=== PATIENT | female | born 1990 | race Caucasian/White ===

== ENCOUNTER 2017-06-20 14:07 | Emergency (ER) | payer MEDICAID, SELFPAY ==
[2017-06-20 14:27] VITALS: BP 116/82; PULSE 87; RESP 20; TEMP 36.8; O2SAT 99; BMI 39.2
--- NOTE | 2017-06-20 14:39 | HMH.EDUTC ---
[facility] [place] Clinical Impression: Strep throat Disposition: Home, Self-Care Condition on Discharge: Good Instructions: DI for Strep Throat Additional Instructions: * Start antibiotic DORCAS and be sure to take as ordered for the FULL length of time although you should start to feel better in 24-48 hours. * Do NOT take antibiotics unless prescribed to you at that time. As we discussed, that is how antibiotic resistance starts. Next time, be sure to seek treatment. * change toothbrush and toothpaste 24-48 hours after starting antibiotic * Monitor Temp. Tylenol every 4 hours as needed no more then 5 times a day or 4000mg in 24 hours and/or ibuprofen every 6 hours as needed no more then 3200mg in 24 hours (as long as your primary care doctor has told you that it is ok to take both) for fever/aches/pain. ER if fever no less than 101 despite tylenol and Ibuprofen * Encourage fluids, water, gatorade, powerade, pedialyte if infant/toddler/child * cold fluids, popsicles, ice cream feel good * you are contagious until you have taken the antibiotic for 24 hours. * Avoid kissing anyone, including parents. No eating or drinking after anyone. You are contagious. Prescriptions: Amoxicillin [Amoxicillin 875MG Tab] 875 mg PO Q12H #20 tab Referrals: Eliseo Galdamez MD [Primary Care Provider] - (Follow up IMMEDIATELY for new or worsening symptoms OR no noticeable improvement over the next 24-48 hours. 911 for difficulty breathing or swallowing ) Time of Disposition: 14:52 Medical Decision Making Vital Signs: 06/20/17 14:27 Temperature 98.2 F Temperature Source Oral Pulse Rate [Left Brachial] 87 Respiratory Rate 20 Blood Pressure [Left Arm] 116/82 Blood Pressure Mean [Left Arm] 93 Blood Pressure Source [Left Arm] Automatic Cuff Blood Pressure Position [Left Arm] Sitting 02 Sat by Pulse Oximetry 99 Oxygen Delivery Method Room Air - Lab Data Lab results reviewed: Yes: I reviewed the patient's lab results. Strep positive FLu A neg Flu B neg - Phil Inquiry Pt receiving controlled substance: No [facility] [place] - General Stated complaint: sore throat Time Seen by Provider: 06/20/17 14:30 Mode of Arrival: Family Vehicle Source of Information: Patient Limitations: No Limitations Description of Symptoms (Recalled from Triage Doc. by RN): c/o sore throat and congestion x 1 1/2 weeks HEENT Symptoms (Recalled from RN notes): Yes (sore throat) Resp Symptoms (Recalled from RN notes): Yes (congestion) Skin Symptoms (Recalled from RN notes): No MS Symptoms (Recalled from RN notes): No Functional Status (Recalled from RN notes): n/a - History of Present Illness Provider Complaint: c/o sore throat x approx 1-1.5 weeks. Initially thought viral but then didn't get better. Took left over amoxicillin for 2 days, symptoms improved but ran out. Symptoms returned soon after. On Sunday mom had two amoxicillin so took those, felt better Sunday but now worse again. Ibuprofen, mucinex, theraflu not helping. No fevers. - Related Data Previous Rx's Medication Instructions Recorded Amoxicillin [Amoxicillin 875MG Tab] 875 mg PO Q12H #20 tab 06/20/17 Allergies Allergy/AdvReac Type Severity Reaction Status Date / Time No Known Allergies Allergy Verified 06/20/17 14:32 - Worker's Comp Is this a Worker's Comp case?: No [facility] History I have reviewed the patient's past medical history: Yes Medical History: Denies:: Diabetes Mellitus Type 1, Diabetes Mellitus Type 2, Heart Murmur Other Surgeries: Yes: (blood loss, blood transfusions), Other Amputation: No Fractures: No - Social History Smoking Status: Current every day smoker Tobacco Type: cigarettes Alcohol Intake: never - Psychiatric History Expresses thoughts of harming self/others: None Suicide Plan Description: No Plan ROS Obtained: Yes Systems reviewed as appropriate & no additional complaints - Constitutional Constitutional: Reports as per HPI, Reports body a
--- NOTE | 2017-06-20 14:43 | ED_ITS ---
[facility] [place] Clinical Impression: Strep throat Disposition: Home, Self-Care Condition on Discharge: Good Instructions: DI for Strep Throat Additional Instructions: * Start antibiotic DORCAS and be sure to take as ordered for the FULL length of time although you should start to feel better in 24-48 hours. * Do NOT take antibiotics unless prescribed to you at that time. As we discussed , that is how antibiotic resistance starts. Next time, be sure to seek treatment. * change toothbrush and toothpaste 24-48 hours after starting antibiotic * Monitor Temp. Tylenol every 4 hours as needed no more then 5 times a day or 4000mg in 24 hours and/or ibuprofen every 6 hours as needed no more then 3200mg in 24 hours (as long as your primary care doctor has told you that it is ok to take both) for fever/aches/pain. ER if fever no less than 101 despite tylenol and Ibuprofen * Encourage fluids, water, gatorade, powerade, pedialyte if infant/toddler/ child * cold fluids, popsicles, ice cream feel good * you are contagious until you have taken the antibiotic for 24 hours. * Avoid kissing anyone, including parents. No eating or drinking after anyone. You are contagious. Prescriptions: Amoxicillin [Amoxicillin 875MG Tab] 875 mg PO Q12H #20 tab Referrals: Eliseo Galdamez MD [Primary Care Provider] - (Follow up IMMEDIATELY for new or worsening symptoms OR no noticeable improvement over the next 24-48 hours. 911 for difficulty breathing or swallowing ) Time of Disposition: 14:52 Medical Decision Making Vital Signs: 06/20/17 14:27 Temperature 98.2 F Temperature Source Oral Pulse Rate [Left Brachial] 87 Respiratory Rate 20 Blood Pressure [Left Arm] 116/82 Blood Pressure Mean [Left Arm] 93 Blood Pressure Source [Left Arm] Automatic Cuff Blood Pressure Position [Left Arm] Sitting 02 Sat by Pulse Oximetry 99 Oxygen Delivery Method Room Air - Lab Data Lab results reviewed: Yes: I reviewed the patient's lab results. Strep positive FLu A neg Flu B neg - Phil Inquiry Pt receiving controlled substance: No [facility] [place] HPI - General Stated complaint: sore throat Time Seen by Provider: 06/20/17 14:30 Mode of Arrival: Family Vehicle Source of Information: Patient Limitations: No Limitations Description of Symptoms (Recalled from Triage Doc. by RN): c/o sore throat and congestion x 1 1/2 weeks HEENT Symptoms (Recalled from RN notes): Yes (sore throat) Resp Symptoms (Recalled from RN notes): Yes (congestion) Skin Symptoms (Recalled from RN notes): No MS Symptoms (Recalled from RN notes): No Functional Status (Recalled from RN notes): n/a - History of Present Illness Provider Complaint: c/o sore throat x approx 1-1.5 weeks. Initially thought viral but then didn't get better. Took left over amoxicillin for 2 days, symptoms improved but ran out. Symptoms returned soon after. On Sunday mom had two amoxicillin so took those, felt better Sunday but now worse again. Ibuprofen, mucinex, theraflu not helping. No fevers. - Related Data Previous Rx's Medication Instructions Recorded Amoxicillin [Amoxicillin 875MG Tab] 875 mg PO Q12H #20 tab 06/20/17 Allergies Allergy/AdvReac Type Severity Reaction Status Date / Time No Known Allergies Allergy Verified 06/20/17 14:32 - Worker's Comp Is this a Worker's Comp case?: No [facility] History I have reviewed the patient's past medical history: Yes Medical H
[2017-06-20 14:55] VITALS: BP 118/80; PULSE 88; RESP 20; TEMP 36.7; O2SAT 98
[2017-06-20 15:01] LABS: UTC Influenza A Antigen Negative (Negative); UTC Influenza B Antigen Negative (Negative)
[2017-06-20 15:02] LABS: UTC Strep Screen (Rapid) Positive (Negative)
== END 2017-06-20 15:00 | disposition home or self-care (01) ==
PROVIDERS: Emergency Provider Nurse Practitioner Family; Family Provider Internal Medicine Adolescent Medicine; PCP Internal Medicine Adolescent Medicine
DX: J02.0 Streptococcal pharyngitis (principal); F17.210 Nicotine dependence, cigarettes, uncomplicated
CPT/HCPCS: 87804; 87880; 99203

== ENCOUNTER → 2017-10-05 11:16 | Outpatient (CLI) | payer MEDICAID, SELFPAY ==
--- NOTE | 2017-10-05 11:21 | US_ITS ---
US abdomen limited History:Right upper quadrant pain and nausea Ordering Physician:Eliseo Galdamez MD Patient Age: 27 years Comparison:None Findings: Pancreas:Unremarkable. No obvious mass or abnormal fluid collection. No ductal dilatation Liver:No focal liver lesions demonstrated. Homogeneous echogenicity. No intrahepatic biliary ductal dilatation evident Right Kidney:Unremarkable. Right kidney measures 10.7 x 5.1 x 6.5 cm and appears sonographically normal. . No hydronephrosis Gallbladder:No gallstones, gallbladder wall thickening, pericholecystic fluid, or biliary dilatation. Impression:Negative gallbladder/right upper quadrant ultrasound
[2017-10-05 12:46] LABS: Basophils # 0.1 K/mm3 (0-0.2); Basophils % 0.6 % (0.1-2.0); Eosinophils # 0.1 K/mm3 (0.0-0.4); Eosinophils % 1.5 % (0.1-12.0); Hematocrit 49.8 % (37.0-47.0); Hemoglobin 15.9 g/dL (12.2-16.2); Lymphocytes # 1.5 K/mm3 (0.7-4.5); Lymphocytes % 15.8 K/mm3 (10-50); Mean Corpuscular HGB Conc 31.9 g/dL (31.8-35.4); Mean Corpuscular Hemoglobin 27.9 pg (27.0-31.2); Mean Corpuscular Volume 87.5 fl (81-99); Mean Platelet Volume 8.3 fl (7.4-10.4); Monocytes # 0.4 K/mm3 (0.1-1.0); Monocytes % 4.4 % (1.7-9.3); Neutrophils # 7.4 K/mm3 (1.8-7.8); Neutrophils % 77.7 % (37.0-80.0); Platelet Count 193 K/mm3 (142-424); Red Blood Count 5.69 M/mm3 (4.20-5.40); Red Cell Distribution Width 12.4 % (11.5-17.5); White Blood Count 9.5 K/mm3 (4.8-10.8)
[2017-10-05 13:57] LABS: Alanine Aminotransferase 19 U/L (12-78); Albumin Level 4.1 gm/dL (3.4-5.0); Albumin/Globulin Ratio 1.2 (1.1-1.8); Alkaline Phosphatase 105 U/L (46-116); Amylase 29 U/L (25-125); Aspartate Amino Transferase 10 U/L (15-37); Bilirubin,Total 0.8 mg/dL (0.2-1.0); Blood Urea Nitrogen 11 mg/dL (7-18); Calcium 8.9 mg/dL (8.5-10.1); Carbon Dioxide 27 mmol/L (21.0-32.0); Chloride 104 mmol/L (98-107); Creatinine,Serum 0.76 mg/dL (0.55-1.02); Estimated Glomerular Filt Rate 93 ml/min (>60); GFR (African American) 112 ML/MIN (>60); Globulin 3.5 gm/dl (1.3-3.2); Glucose 89 mg/dL (74-106); HCG,Quantitative 0 mIU/mL; Lipase 46 u/L (73-393); Sodium 138 mmol/L (136-145); Total Protein,Serum 7.6 gm/dL (6.4-8.2)
== END ==
PROVIDERS: PCP Internal Medicine Adolescent Medicine; Visit Provider Internal Medicine Adolescent Medicine
DX: R10.11 Right upper quadrant pain (principal)
CPT/HCPCS: 36415; 76705; 80053; 82150; 83690; 84702; 85025

== ENCOUNTER → 2020-09-15 12:43 | Outpatient (CLI) | payer OTHER, SELFPAY ==
[2020-09-15 12:51] LABS: Adenovirus,PCR Not Detected (NotDetected); Bordetella Pertussis Not Detected (NotDetected); Chlamydophila Pneumoniae, PCR Not Detected (NotDetected); Coronavirus 229E Not Detected (NotDetected); Coronavirus NL63 Not Detected (NotDetected); Coronavirus OC43 Not Detected (NotDetected); Coronovirus HKU1,PCR Not Detected (NotDetected); Human Metapneumovirus Not Detected (NotDetected); Influenza A, PCR Not Detected (NotDetected); Influenza AH1, 2009 Not Detected (NotDetected); Influenza AH1, PCR Not Detected (NotDetected); Influenza AH3,PCR Not Detected (NotDetected); Influenza B, PCR Not Detected (NotDetected); Mycoplasma Pneumoniae, PCR Not Detected (NotDetected); Parainfluenza 1, PCR Not Detected (NotDetected); Parainfluenza 2, PCR Not Detected (NotDetected); Parainfluenza 3, PCR Not Detected (NotDetected); Parainfluenza 4, PCR Not Detected (NotDetected); Respiratory Syncytial Virus Not Detected (NotDetected)
--- NOTE | 2020-09-15 13:04 | XR_ITS ---
PROCEDURE: XR CHEST 2V CLINICAL HISTORY: ACUTE URI, WHEEZING COMPARISON: No exams were available for comparison FINDINGS: The cardiomediastinal silhouette and pulmonary vascularity are within normal limits. No lobar consolidation or collapse is evident. There is a rounded nodular opacity overlying the right lower lobe at 13 mm and may represent a nipple shadow. This is not identified on the lateral view. The remaining lungs are clear. No acute bony abnormalities. IMPRESSION: No acute finding. Probable nipple shadow right lower lung zone which could be confirmed with follow-up exam nipple markers. Dictated by: Bryan Schreiber MD 09/15/2020 14:03 Bryan Schreiber MD in [place] 09/15/2020 14:03
[2020-09-15 13:18] LABS: Basophils # 0.1 K/mm3 (0-0.2); Basophils % 0.7 % (0.1-2.0); Eosinophils # 0.2 K/mm3 (0.0-0.4); Eosinophils % 1.8 % (0.1-12.0); Hematocrit 47.5 % (37.0-47.0); Hemoglobin 16.1 g/dL (12.2-16.2); Lymphocytes % 16.5 % (10-50); Mean Corpuscular HGB Conc 33.9 g/dL (31.8-35.4); Mean Corpuscular Volume 85.6 fl (81-99); Mean Platelet Volume 8.1 fl (7.4-10.4); Monocytes # 0.6 K/mm3 (0.1-1.0); Monocytes % 4.7 % (1.7-9.3); Neutrophils # 9.4 K/mm3 (1.8-7.8); Neutrophils % 76.4 % (37.0-80.0); Platelet Count 251 K/mm3 (142-424); Red Blood Count 5.55 M/mm3 (4.20-5.40); Red Cell Distribution Width 12.8 % (11.5-17.5); White Blood Count 12.2 K/mm3 (4.8-10.8)
[2020-09-15 13:59] LABS: Alanine Aminotransferase 22 U/L (12-78); Albumin Level 4.7 g/dl (3.5-5.0); Albumin/Globulin Ratio 1.6 (1.1-1.8); Alkaline Phosphatase 100 U/L (38-126); Anion Gap 15.2 mEq/L (5-15); Aspartate Amino Transferase 22 U/L (14-36); Bilirubin,Total 0.5 mg/dl (0.2-1.3); Blood Urea Nitrogen 11 mg/dl (7-17); Calcium 9.3 mg/dl (8.4-10.2); Carbon Dioxide 18 mmol/L (22.0-30.0); Chloride 109 mmol/L (98-107); Estimated Glomerular Filt Rate 100 ml/min (>60); GFR (African American) 121 ML/MIN (>60); Globulin 2.9 g/dL (1.3-3.2); Glucose 101 mg/dl (74-100); Potassium 4.2 mmoL/L (3.5-5.1); Sodium 138 mmol/L (136-145); Total Protein,Serum 7.6 g/dl (6.3-8.2)
[2020-09-15 14:47] LABS: Rhinovirus/Enterovirus Detected (NotDetected)
== END ==
PROVIDERS: Visit Provider Internal Medicine Adolescent Medicine
DX: Z20.822 Contact with and (suspected) exposure to COVID-19 (principal); B34.1 Enterovirus infection, unspecified; R06.2 Wheezing; J06.9 Acute upper respiratory infection, unspecified
CPT/HCPCS: 36415; 71046; 80053; 85025; 87486; 87581; 87633; 87798

== ENCOUNTER → 2020-10-08 10:04 | Outpatient (CLI) | payer OTHER, SELFPAY | PROVIDERS: Visit Provider Nurse Practitioner Obstetrics & Gynecology | DX: Z34.90 Encounter for supervision of normal pregnancy, unspecified, unspecified trimester (principal) ==

== ENCOUNTER → 2020-10-13 13:23 | Outpatient (CLI) | payer OTHER, SELFPAY ==
--- NOTE | 2020-10-13 13:23 | US_ITS ---
PROCEDURE: US OB <= 14 WEEKS FETUS CLINICAL INDICATION: US OB Before 14 wks for DATES COMPARISON: No exams were available for comparison FINDINGS: An intrauterine gestational sac is present with a pole with a crown-rump length of 1.88cm correlating to gestational age of 8weeks 3days. heart tones are present with an FHR of 167bpm. Yolk sac is noted. Unremarkable adnexa IMPRESSION: Live IUP at 8 weeks 3 days. Estimated due date by Ultrasound is 05/22/2021 Dictated by: Bryan Schreiber MD 10/13/2020 16:43 Bryan Schreiber MD in [facility] 10/13/2020 16:43
== END ==
PROVIDERS: PCP Internal Medicine Adolescent Medicine; Visit Provider Nurse Practitioner Obstetrics & Gynecology
DX: O26.841 Uterine size-date discrepancy, first trimester (principal)
CPT/HCPCS: 76801

== ENCOUNTER → 2020-11-16 16:28 | Outpatient (CLI) | payer OTHER, SELFPAY ==
[2020-11-16 16:53] LABS: Basophils # 0.1 K/mm3 (0-0.2); Basophils % 0.6 % (0.1-2.0); Eosinophils # 0.2 K/mm3 (0.0-0.4); Eosinophils % 1.2 % (0.1-12.0); Hematocrit 39.6 % (37.0-47.0); Hemoglobin 13.6 g/dL (12.2-16.2); Lymphocytes # 2.2 K/mm3 (0.7-4.5); Lymphocytes % 16.4 % (10-50); Mean Corpuscular HGB Conc 34.3 g/dL (31.8-35.4); Mean Corpuscular Hemoglobin 29.6 pg (27.0-31.2); Mean Corpuscular Volume 86.3 fl (81-99); Mean Platelet Volume 7.7 fl (7.4-10.4); Monocytes # 0.6 K/mm3 (0.1-1.0); Monocytes % 4.4 % (1.7-9.3); Neutrophils # 10.3 K/mm3 (1.8-7.8); Neutrophils % 77.5 % (37.0-80.0); Platelet Count 176 K/mm3 (142-424); Red Blood Count 4.59 M/mm3 (4.20-5.40); Red Cell Distribution Width 13.7 % (11.5-17.5); White Blood Count 13.3 K/mm3 (4.8-10.8)
[2020-11-18 06:12] LABS: HIV Screen 4th Generation wRfx Non Reactive (Non Reactive)
[2020-11-18 10:37] LABS: Hepatitis B Surface Antigen Negative (Negative); Hepatitis C Antibody <0.1 s/co ratio (0.0-0.9)
[2020-11-18 13:17] LABS: Rapid Plasma Reagin Ab Titer Non Reactive (NonRea<1:1)
[2020-11-18 17:42] LABS: HSV 1 IgG, Type Spec <0.91 index (0.00-0.90); HSV 2 IgG Supplemental Testing Negative (Negative); HSV 2 IgG, Type Spec 1.43 index (0.00-0.90)
== END ==
PROVIDERS: Visit Provider Nurse Practitioner Obstetrics & Gynecology
DX: Z34.90 Encounter for supervision of normal pregnancy, unspecified, unspecified trimester (principal)
CPT/HCPCS: 36415; 85025; 86592; 86695; 86703; 86762; 86790; 86850; 87340; 87380; G0432

== ENCOUNTER → 2021-01-07 09:50 | Outpatient (CLI) | payer OTHER, SELFPAY ==
--- NOTE | 2021-01-07 09:51 | US_ITS ---
PROCEDURE: US OB /MATERNAL DETAIL CLINICAL INDICATION: 20 week gestation COMPARISON: US US OB <= 14 WEEKS FETUS from 10/13/2020 FINDINGS: There is a single live fetus in breech presentation. The cervix is closed measuring 3 cm. The placenta is posterior and lateral in implantation and grade 1. Complete survey performed and was unremarkable on the submitted images as in PACS. No discrete anomalies identified on survey imaging by technologist. Active fetus. Three-vessel cord with satisfactory umbilical cord insertion. 4- chamber heart noted. Survey of brain & ventricles Unremarkable. Face and neck survey unremarkable. Diaphragm and chest views unremarkable. Abdomen: Both kidneys noted and unremarkable. Stomach noted and satisfactory. Spine: Survey of the spine satisfactory with no anomalies identified nor imaged. Both arms and legs noted. Amniotic Fluid: Adequate. Maternal adnexa: No significant findings. Measurements: Average ultrasound age 21weeks 3days. Gestational Age 21weeks 3days Estimated due date by ultrasound age 0205/17/2021. Estimated weight 404g BPD = 22weeks OFD = 21weeks 3days HC = 21weeks AC = 21weeks 3days FL = 21weeks Growth Percentile= 54% Heart Rate = 143bpm Cerebellum = 20weeks 3days Humerus = 21weeks 4days HC/AC is 1.14 CI is 0.81 FL/BPD is 0.66 FL/AC is 0.21 IMPRESSION: Live IUP in breech presentation with an average ultrasound age 21 weeks 3 days. No obvious anomalies. Please see above for detail. Dictated by: Bryan Schreiber MD 01/07/2021 13:21 Bryan Schreiber MD in [facility] 01/07/2021 13:21
== END ==
PROVIDERS: PCP Internal Medicine Adolescent Medicine; Visit Provider Nurse Practitioner Obstetrics & Gynecology
DX: Z36.0 Encounter for antenatal screening for chromosomal anomalies (principal)
CPT/HCPCS: 76811

== ENCOUNTER → 2021-02-11 08:12 | Outpatient (CLI) | payer OTHER, SELFPAY ==
[2021-02-11 08:47] LABS: Glucose,Fasting 99 mg/dl (74-100)
[2021-02-11 10:23] LABS: Glucose 1 Hour 160 mg/dL (74-100)
== END ==
PROVIDERS: Visit Provider Nurse Practitioner Obstetrics & Gynecology
DX: O99.814 Abnormal glucose complicating childbirth (principal)
CPT/HCPCS: 36415; 82951

== ENCOUNTER → 2021-02-25 07:53 | Outpatient (CLI) | payer OTHER, SELFPAY ==
[2021-02-25 09:29] LABS: Glucose,Fasting 88 mg/dl (74-100)
[2021-02-25 11:00] LABS: Glucose 2 Hour 143 mg/dL (74-100)
[2021-02-25 11:15] LABS: Glucose 1 Hour 167 mg/dL (74-100)
[2021-02-25 12:24] LABS: Glucose 3 Hour 61 mg/dL (74-100)
== END ==
PROVIDERS: Visit Provider Nurse Practitioner Obstetrics & Gynecology
DX: O99.814 Abnormal glucose complicating childbirth (principal); Z34.90 Encounter for supervision of normal pregnancy, unspecified, unspecified trimester
CPT/HCPCS: 36415; 82951

== ENCOUNTER → 2021-04-25 16:32 | Outpatient (CLI) | payer OTHER, SELFPAY | PROVIDERS: Visit Provider Nurse Practitioner Obstetrics & Gynecology | DX: Z34.90 Encounter for supervision of normal pregnancy, unspecified, unspecified trimester (principal) | CPT/HCPCS: 86403 ==

== ENCOUNTER → 2021-04-27 13:19 | Outpatient (CLI) | payer OTHER, SELFPAY ==
--- NOTE | 2021-04-27 13:20 | US_ITS ---
FINAL REPORT CLINICAL HISTORY: LGA FINDINGS: TRANSABDOMINAL ULTRASOUND, Single intrauterine is present. Cardiac activity is confirmed at 147 beats per minute. Appropriate amount of fluid is present. Placenta is anterior and posterior. DEMETRIS is 17, within normal limits. Fetus is cephalic. Growth parameters are as follows: BPD: 10.1 cm consistent with 41 weeks 5 days. Head circumference: 35.2 cm consistent with 41 weeks 1 day. Abdominal circumference: 36.5 cm consistent with 40 weeks 3 days. Femur length: 7.6 cm consistent with 38 weeks 5 days. Estimated gestational age: 40 weeks 4 days. IMPRESSION: Single living IUP with estimated gestational age of 40 weeks 4 days. Reviewed, Interpreted and Dictated by Rangel Kramer III, MD Transcribed by Asher Branch Authenticated by Rangel Kramer III, MD on 04/27/2021 02:49:01 PM [facility]
== END ==
PROVIDERS: PCP Internal Medicine Adolescent Medicine; Visit Provider Nurse Practitioner Obstetrics & Gynecology
DX: O36.60X0 Maternal care for excessive fetal growth, unspecified trimester, not applicable or unspecified (principal)
CPT/HCPCS: 76805; 76819

== ENCOUNTER → 2021-05-11 09:34 | Outpatient (CLI) | payer OTHER, SELFPAY ==
[2021-05-11 11:04] LABS: Anion Gap 8.9 mEq/L (5-15); Blood Urea Nitrogen 7 mg/dl (7-17); Calcium 9.1 mg/dl (8.4-10.2); Carbon Dioxide 23 mmol/L (22.0-30.0); Chloride 108 mmol/L (98-107); Estimated Glomerular Filt Rate 118 ml/min (>60); GFR (African American) 143 ML/MIN (>60); Glucose 131 mg/dl (74-100); Potassium 3.9 mmoL/L (3.5-5.1); Sodium 136 mmol/L (136-145)
[2021-05-11 11:40] LABS: Basophils # 0.1 K/mm3 (0-0.2); Basophils % 0.4 % (0.1-2.0); Eosinophils # 0.1 K/mm3 (0.0-0.4); Eosinophils % 0.7 % (0.1-12.0); Hematocrit 40.9 % (37.0-47.0); Hemoglobin 13.3 g/dL (12.2-16.2); Lymphocytes # 1.5 K/mm3 (0.7-4.5); Lymphocytes % 12.4 % (10-50); Mean Corpuscular HGB Conc 32.5 g/dL (31.8-35.4); Mean Corpuscular Hemoglobin 27.7 pg (27.0-31.2); Mean Corpuscular Volume 85.2 fl (81-99); Mean Platelet Volume 10.1 fl (7.4-10.4); Monocytes # 0.5 K/mm3 (0.1-1.0); Monocytes % 4.2 % (1.7-9.3); Neutrophils # 9.9 K/mm3 (1.8-7.8); Neutrophils % 82.2 % (37.0-80.0); Platelet Count 190 K/mm3 (142-424); Red Cell Distribution Width 15.2 % (11.5-17.5)
== END ==
PROVIDERS: PCP Internal Medicine Adolescent Medicine; Visit Provider Nurse Practitioner Obstetrics & Gynecology
DX: Z01.818 Encounter for other preprocedural examination (principal); Z30.09 Encounter for other general counseling and advice on contraception; Z34.90 Encounter for supervision of normal pregnancy, unspecified, unspecified trimester
CPT/HCPCS: 36415; 80048; 85025; C9803; U0003; U0005

== ENCOUNTER 2021-05-13 05:13 | Inpatient (IN) | payer OTHER, SELFPAY ==
[2021-05-13] VITALS (12 sets, daily range): BP systolic 115–139; BP diastolic 63–86; PULSE 71–107; RESP 15–18; TEMP 36.1–37; O2SAT 95–99; BMI 49.8
[2021-05-13 06:15] LABS: Microscopic, Urine URINE MICROSCOPIC (MICROSCOPIC)
[2021-05-13 06:15] LABS: Coronavirus 19, PCR Not Detected (NotDetected); Influenza A, PCR Not Detected (NotDetected); Influenza B, PCR Not Detected (NotDetected)
[2021-05-13 06:22] LABS: Appearance,Urine CLEAR (Clear); Bilirubin,Urine Negative (Negative); Blood, Urine Negative (Negative); Color,Urine YELLOW (Yellow); Glucose,Urine (UA) Negative (Negative); Ketones,Urine Negative (Negative); Leukocyte Esterase,Urine 2+ (Negative); Nitrate,Urine Negative (Negative); Protein,Urine Negative (Negative); Specific Gravity, Urine 1.025 (1.005-1.030); Urobilinogen,Urine 0.2 EU/dl (0.2)
[2021-05-13 06:48] LABS: Bacteria,Urine 1+ /lpf
--- NOTE | 2021-05-13 07:20 | HMH.OBAPHP ---
OB - H&P: HPI Antepartum - History of Present Illness Chief complaint: Term , previous section, desire for sterilization History of present illness: She is a 31-year-old 4 para 3 at 39 weeks gestational age. She has had previous sections and as result of that is offered repeat lower segment transverse section at term. She also expressed desire for sterilization. The risks and benefits as well as the irreversibility of bilateral salpingectomy were discussed with the patient prior to surgery. - History of Present Criteria for establishing EDC:: LMP confirmed by 1st trimester US care: good care Ultrasounds: normal 1st trimester US, normal mid trimester US Obstetrical complications: previous Medical complications: none - Labs Blood type: O (+) positive Rubella: immune RPR/VDRL: nonreactive GBS status: negative HBsAG: negative [facility] History I have reviewed the patient's past medical history: Yes Medical History: Denies:: Cancer, Diabetes Mellitus Type 1, Diabetes Mellitus Type 2, Heart Murmur, MRSA *Have you ever received a pneumonia vaccine?: No *Have you received a flu vaccine this season?: No Other Surgeries: Yes: , Other Amputation: No Fractures: No - *Social History Smoking Status: Former smoker Tobacco Type: cigarettes # Packs/Day (cigarettes): 1 Alcohol Intake: never Alcohol Intake Frequency:: other Substance Use Type: denies use *Occupational Status:: employed *Travel in the last 8 weeks: None Family Hx:: Hypertension Para: 3 Review of Systems - Review of Systems Review of systems:: pertinent systems reviewed and negative unless documented below Meds Allergies Allergy/AdvReac Type Severity Reaction Status Date / Time No Known Allergies Allergy Verified 05/11/21 11:09 OB - H&P: Exam - Physical Exam Vital signs: Temp Pulse Resp BP Pulse Ox 98.4 F 107 H 18 122/80 95 05/13/21 05:30 05/13/21 05:30 05/13/21 05:30 05/13/21 05:30 05/13/21 05:30 - Constitutional no acute distress - Routine HEENT Exam Head: Present: normocephalic Eye: Present: EOMI, PERRL ENT: Present: mucous membranes moist - Routine Neck Exam Present: supple, full ROM - Routine Respiratory Exam Absent: accessory muscle use (good air entry bilaterally), respiratory distress, wheezes, crackles - Routine Cardiovascular Exam Present: RRR. Absent: murmur - Routine Abdominal Exam Present: soft, normoactive bowel sounds. Absent: tenderness, distended, guarding - Routine Rectal Exam Patient deferred: visual exam, digital exam - Routine Exam Patient deferred: external exam, groin exam, perineal exam - Routine Extremities Exam Present: full ROM. Absent: cyanosis, edema - Routine Skin Exam Present: intact. Absent: cyanosis - Routine Neurological Exam Present: alert, oriented X3 - Routine Psychiatric Exam Present: normal affect OB - Results - Labs Labs: Urine 05/13/21 Range/Units 05:40 Urine Color Yellow (Yellow) Urine Appearance Clear (Clear) Urine pH 6.0 (5.0-8.5) Ur Specific [place] 1.025 (1.005-1.030) Urine Protein Negative (Negative) Urine Glucose (UA) Negative (Negative) OB - A/P Antepartum (1) Previous section complicating , with delivery Status: Acute (2) Sterilization Status: Acute (3) delivery delivered Status: Acute - Additional Plan Planning to breastfeed?: No Plan: other Additional Information:: She is admitted for repeat lower segment transverse section.
[2021-05-13 07:30] LABS: Opiate Screen,Urine Negative ng/ml (<300)
[2021-05-13 07:31] LABS: Phencyclidine Screen,Urine Negative ng/ml (<25)
[2021-05-13 07:39] LABS: Amphetamine/Metha Screen,Urine Negative ng/ml (<1000); Barbiturates Screen,Urine Negative ng/ml (<200)
[2021-05-13 07:40] LABS: Benzodiazepines Screen,Urine Negative ng/ml (<200)
[2021-05-13 07:44] LABS: Cocaine Screen,Urine Negative ng/ml (<300); Methadone Screen,Urine Negative ng/ml (<300)
[2021-05-13 07:45] LABS: Cannabinoid Screen,Urine Negative ng/ml (<50)
--- NOTE | 2021-05-13 08:24 | HMH.OPNOTE ---
Date of procedure: 05/13/21 Pre-op Diagnosis:: Term , previous section, desire for sterilization Post-op Diagnosis:: Term , previous section, desire for sterilization, uterine atony Procedure performed:: Repeat lower segment transverse section, bilateral salpingectomy, B-Suazo suture Surgeon:: Edwin Agrawal MD Customs Entry Clerk(s):: Elana Felix APPLICATIONS ARCHITECT:: Dawson Rodas Anesthesia: spinal Estimated blood loss (mL): 700 Clinical Note:: She is a 31-year-old 4 para 3 at 39 and 1 weeks gestational age. She had good dates. She has had a previous section and as result of that was offered repeat lower segment transverse section at term. She also expressed desire for sterilization. Operative findings:: She delivered a liveborn female child at 7:44 AM on the morning of May 13, 2021. The baby had Apgars of 8 at 1 minute and 9 at 5 minutes. Weight was 9 pounds 10 ounces. There was copious clear amniotic fluid. I suspect she had undiagnosed gestational diabetes. Ovaries and tubes appeared normal. Operative note:: She was taken to the operating room where spinal anesthesia was found be adequate. She was prepped and draped in normal sterile fashion in the supine position with a leftward tilt. A George catheter was in the bladder. A Pfannenstiel skin incision was made with knife then carried through to the underlying layer of fascia with cautery. The fascia was opened in the midline with cautery and extended laterally using Carlos scissors. [place] clamps were applied to the superior aspect of the fascial incision which was tented up and the underlying rectus muscles dissected off using cautery. The [place] clamps were then applied to the inferior aspect of the fascial incision which in a similar fashion was tented up and the underlying rectus muscles dissected off using cautery. The rectus muscles were then in the midline, the peritoneum identified, and entered sharply with Metzenbaum scissors. This incision was then extended superiorly and inferiorly with cautery. We had good visualization of the bladder inferiorly. We then inserted an Addison retractor. The bladder peritoneum was then opened in the midline and extended laterally using Metzenbaum scissors. A bladder flap was created digitally. Transverse incision was made through the uterine muscle to the amnion. This incision was then extended superiorly and inferiorly using fingers traction. The amnion was entered sharply with knife. There was clear amniotic fluid. The infant's head was then delivered atraumatically. This was followed by the anterior shoulder and the rest of the infant's body atraumatically. The oropharynx and nasopharynx were bulb suctioned. The infant was vigorous so we allowed the cord to continue to pulsate for approximately 1 minute. The was then handed off to Dr. Hansen who assigned Apgars of 8 at 1 minute and 9 at 5 minutes. We then obtained cord blood. Using gentle traction on the cord and countertraction on the fundus I was able to easily deliver the placenta intact. It had a normal three-vessel cord. The uterus was then cleared of clots and debris . The uterine incision was then closed using running 0 Vicryl suture in a locked fashion. A second layer of the same suture was used to imbricate the first layer. The bladder peritoneum was then closed using running 2-0 Vicryl suture in a locked fashion. The gutters and cul-de-sac were then cleared of clots and debris . Once again hemostasis was assured. The uterus was then exteriorized from the abdominal cavity. We then performed a bilateral salpingectomy. The distal end of the tube was grasped with my fingers and using the endoseal I cut through the mesosalpinx. I then cut across the tube close to the cornua. This was similarly performed on the opposite side. Tubes were sent to pathology. After doing the tubal ligation we realized that the marlene
--- NOTE | 2021-05-13 08:36 | P.PN_ITS ---
[facility] Anesthesia Checklist - Patient Identification Patient Identification: Arm Band - Structural Data Admitted From: Inpatient Planned Operative Procedure/s: Repeat C/S, Bilateral Salpingectomy Consent for Planned Operative Procedure(s) Verified: Yes Verified Documents: Surgical Consent, History and Physical - NPO Status Verified Time NPO: 00:00 - Additional verifications Anesthesia Reactions: No - Airway Assessment C-Spine Mobility Assessed: Yes TMJ Mobility Assessed: Yes Dentition: Good Dentition - Neurological Assessment Level of Consciousness: Awake, Alert - Anesthesia Plan Anesthesia Risk discussed: Yes Anesthesia Plan: Verified ASA Class: II Anesthesia Type: Spinal (with Bilateral TAP Block) [facility] History I have reviewed the patient's past medical history: Yes Medical History: Denies:: Cancer, Diabetes Mellitus Type 1, Diabetes Mellitus Type 2, Heart Murmur, MRSA *Have you ever received a pneumonia vaccine?: No *Have you received a flu vaccine this season?: No Anesthesia experience/problems:: nac Other Surgeries: Yes: , Other Amputation: No Fractures: No - *Social History Smoking Status: Former smoker Tobacco Type: cigarettes # Packs/Day (cigarettes): 1 Alcohol Intake: never Alcohol Intake Frequency:: other Substance Use Type: denies use *Occupational Status:: employed *Travel in the last 8 weeks: None Family Hx:: Hypertension Para: 3
--- NOTE | 2021-05-13 08:37 | HMH.ANESI ---
[facility] Anesthesia Record Part I Intake, IV Amount: 2,000 Estimated blood loss (mL): 700 Urine output (mL): 200 Blood Pressure: 139/83 SaO2: 96 Pulse Rate: 104 Respiratory Rate: 16 Temperature: 97 F Patient is:: Awake, Stable Stable to PACU at:: 08:30
--- NOTE | 2021-05-13 09:05 | SUR.PHASEI ---
0900 detailed report given to Dre, OB RN. Pt left in stable condition with OB RN.
--- NOTE | 2021-05-13 09:46 | HMH.ANESII ---
[facility] Anesthesia Record Part II Discharge Time: 09:00 Destination: Obstetric PACU nurse assessment reviewed?: Yes Patient Condition:: Good Anesthesia Complications:: None Swallowing reflex intact?: Yes Cyanosis?: No Blood Pressure: 115/72 Pulse Rate: 71 Temperature: 97 F Mental Status: Alert & Oriented Pain level:: 0 Nausea and/or vomitting:: None Intake, IV Amount: 0
[2021-05-13 13:40] LABS: Microscopic,Cath URINE MICROSCOPIC (MICROSCOPIC)
[2021-05-13 14:13] LABS: Appearance,Urine/Cath CLEAR (Clear); Bilirubin,Cath Negative (Negative); Blood, Urine/Cath Negative (Negative); Color,Urine/Cath YELLOW (Yellow); Glucose,Urine/Cath (UA) Negative (Negative); Ketones,Urine/Cath TRACE (Negative); Leukocyte Esterase,Cath Negative (Negative); Nitrate,Cath Negative (Negative); Protein,Urine/Cath Negative (Negative); Specific Gravity, Urine/Cath 1.025 (1.005-1.030); Urobilinogen,Cath 0.2 EU/dl (0.2)
[2021-05-13 14:34] LABS: WBC,Urine/Cath Occasional #/hpf (0-3)
[2021-05-14 07:18] LABS: Hemoglobin 10.8 g/dL (12.2-16.2)
--- NOTE | 2021-05-14 10:07 | P.PN_ITS ---
Internal Medicine - PN: Subj *Date: 05/14/21 *Time: 10:07 Interval history: She is 1 day post section. She is doing well. She is eating and drinking and ambulating. She is breast-feeding. Her hemoglobin is stable. Her pain is reasonably well controlled. Exam Vital signs and Labs for Last 24 Hours: Temp Pulse Resp BP Pulse Ox 98.6 F 88 16 121/63 98 05/13/21 15:30 05/13/21 15:30 05/13/21 22:20 05/13/21 15:30 05/13/21 15:30 Laboratory Results - last 24 hr 05/13/21 08:45: Urine Color Yellow, Urine Appearance Clear, Urine pH 6.0, Ur Specific [place] 1.025, Urine Protein Negative, Urine Glucose (UA) Negative, Urine Ketones Trace, Urine Blood Negative, Urine Nitrate Negative, Urine Bilirubin Negative, Urine Urobilinogen 0.2, Ur Leukocyte Esterase Negative, Urine RBC None, Urine WBC Occasional, Ur Squamous Epith Cells None, Urine Bacteria None 05/14/21 07:00: Hgb 10.8 L, Hct 33.0 L I & O for Last 24 hours: Intake & Output 05/11/21 05/12/21 05/13/21 05/14/21 11:59 11:59 11:59 11:59 Intake Total 1999 / 1999 Output Total 200 / 200 Balance 1800 / 1800 Weight 290 lb Microbiology Reports for the Last 24 Hours: Microbiology 05/13/21 05:40 Urine,Clean Catch Urine Culture - Preliminary - Constitutional no acute distress - *Routine HEENT Exam Head: Present: normocephalic Eye: Present: EOMI, PERRL ENT: Present: mucous membranes moist Assessment and Plan (1) Previous section complicating , with delivery Status: Acute Category: Surgical Code(s): O34.219 - Maternal care for unspecified type scar from previous delivery (2) Sterilization Status: Acute Category: Medical Code(s): Z30.2 - Encounter for sterilization (3) delivery delivered Status: Acute Category: Medical Code(s): O82 - Encounter for delivery without indication - Assessment and plan all Dx Assessment and Plan for all problems:: She continues to do well. We will see her in the morning. We will plan to send her home tomorrow.
[2021-05-14 20:33] VITALS: BP 126/75; PULSE 90; RESP 18; TEMP 37.1; O2SAT 100
[2021-05-15 04:06] VITALS: BP 124/60; PULSE 81; RESP 18; TEMP 36.9; O2SAT 99
--- NOTE | 2021-06-07 16:55 | HMH.OBDCSM ---
General - General Admission date:: 05/13/21 Discharge date: 05/15/21 HPI - History of Present Illness History of present illness: he is a 31-year-old 4 para 3 at 39 and 1 weeks gestational age. She had good dates. She has had a previous section and as result of that was offered repeat lower segment transverse section at term. She also expressed desire for sterilization. Hospital Course Hospital Course: On April 23, 2021 she underwent a repeat lower segment transverse section and bilateral salpingectomy. She delivered a liveborn female child at 7:44 AM. The baby weighed 9 pounds 10 ounces and had Apgars of 8 at 1 minute and 9 at 5 minutes. She has done well and has remained afebrile without her hospitalization. She is eating and drinking and ambulating. She is bottlefeeding. Her lochia is normal. She is discharged home to follow-up with me in a few days time because her blood pressure was slightly elevated. She will continue with her vitamins and iron. She is given the usual instructions with respect to limiting her activity, driving and sexual activity. She was given a prescription for Percocet 5/325 number 20 tablets. Her condition on discharge is stable and improved. Rhogam Administration: Not Indicated Objective Vital signs: Temp Pulse Resp BP Pulse Ox 98.4 F 81 18 124/60 99 05/15/21 04:06 05/15/21 04:06 05/15/21 04:06 05/15/21 04:06 05/15/21 04:06 no acute distress - *Routine HEENT Exam Head: Present: normocephalic Eye: Present: EOMI, PERRL ENT: Present: mucous membranes moist DS: Diagnosis - Discharge Diagnosis (1) Previous section complicating , with delivery Status: Acute (2) Sterilization Status: Acute (3) delivery delivered Status: Acute Discharge Plan - Patient Discharge Instructions ACTIVITY: No heavy lifting DIET: continue same diet Additional Instructions: No heavy lifting, strenuous activity Nothing in the vagina for 6 weeks No driving for 2 weeks or while taking prescription narcotics Follow up with MD as scheduled 05/27/21 AT 10:30 Patient Instructions: Depression, Hemorrhage, DI for , DI for Pre-eclampsia, Surgical Site Infection, [facility] Post Discharge Instructions, Preventing the Spread of Coronavirus Discharge Instructions - Follow up Plan Follow up with: Edwin Agrawal MD [Primary Care Provider] - 05/27/21 10:30 am Disposition: Home, Self-Care Condition at discharge:: Stable Home Medications: Home Medications Medication Instructions Recorded Confirmed Type nifedipine 30 mg tablet,extended 30 mg PO DAILY #30 tab 05/18/21 05/24/21 Rx release 24 hr Prescriptions/Medication Reconciliation: No Action nifedipine 30 mg tablet,extended release 24 hr 30 mg PO DAILY #30 tab - Problem Reconciliation Problems Reviewed?: Yes
== END 2021-05-15 11:00 | disposition home or self-care (01) | DRG 785 ==
PROVIDERS: Admitting Provider Nurse Practitioner Obstetrics & Gynecology; PCP Nurse Practitioner Obstetrics & Gynecology; Visit Provider Nurse Practitioner Obstetrics & Gynecology
PROC: 10D00Z1 Extraction of Products of Conception, Low, Open Approach (ICD-10-PCS; CPT 59514; principal; 2021-05-13 07:30)
DX: O34.211 Maternal care for low transverse scar from previous cesarean delivery (principal); N85.8 Other specified noninflammatory disorders of uterus; Z3A.39 39 weeks gestation of pregnancy; Z37.0 Single live birth; Z30.2 Encounter for sterilization; O75.89 Other specified complications of labor and delivery
CPT/HCPCS: 59514; 58700; 36415; 59025; 80048; 80305; 81001; 85014; 85018; 85025; 86850; 87086; 87088; 87186; 88302; 94761; C9290; C9803; G0283; J2405; U0003; U0005

== ENCOUNTER → 2021-05-17 12:46 | Outpatient (CLI) | payer OTHER, SELFPAY ==
[2021-05-17 13:15] LABS: Basophils # 0.1 K/mm3 (0-0.2); Basophils % 0.9 % (0.1-2.0); Eosinophils # 0.3 K/mm3 (0.0-0.4); Eosinophils % 2.7 % (0.1-12.0); Hematocrit 38.4 % (37.0-47.0); Hemoglobin 12.3 g/dL (12.2-16.2); Lymphocytes # 1.5 K/mm3 (0.7-4.5); Lymphocytes % 16.8 % (10-50); Mean Corpuscular HGB Conc 32.1 g/dL (31.8-35.4); Mean Corpuscular Hemoglobin 27.3 pg (27.0-31.2); Mean Platelet Volume 8.3 fl (7.4-10.4); Monocytes # 0.4 K/mm3 (0.1-1.0); Monocytes % 3.9 % (1.7-9.3); Neutrophils # 6.9 K/mm3 (1.8-7.8); Neutrophils % 75.6 % (37.0-80.0); Platelet Count 288 K/mm3 (142-424); Red Blood Count 4.51 M/mm3 (4.20-5.40); Red Cell Distribution Width 15.3 % (11.5-17.5); White Blood Count 9.1 K/mm3 (4.8-10.8)
[2021-05-17 13:25] LABS: D-Dimer 0.98 ug/mL (0.0-0.5)
[2021-05-17 17:41] LABS: Activated Partial Thrombo Time 24.3 seconds (22.8-30.6); Fibrinogen 597 mg/dL (229.9-363.5); INR 0.82 (0.9-1.1); Prothrombin Time 9.4 seconds (10.1-12.5)
[2021-05-17 18:07] LABS: Alanine Aminotransferase 41 U/L (12-78); Anion Gap 11.3 mEq/L (5-15); Aspartate Amino Transferase 41 U/L (14-36); Blood Urea Nitrogen 10 mg/dl (7-17); Calcium 8.8 mg/dl (8.4-10.2); Carbon Dioxide 25 mmol/L (22.0-30.0); Chloride 107 mmol/L (98-107); Estimated Glomerular Filt Rate 118 ml/min (>60); GFR (African American) 143 ML/MIN (>60); Glucose 70 mg/dl (74-100); Potassium 4.3 mmoL/L (3.5-5.1); Sodium 139 mmol/L (136-145); Uric Acid 5.6 mg/dl (2.5-6.2)
== END ==
PROVIDERS: PCP Internal Medicine Adolescent Medicine; Visit Provider Nurse Practitioner Obstetrics & Gynecology
DX: O13.9 Gestational [pregnancy-induced] hypertension without significant proteinuria, unspecified trimester (principal)
CPT/HCPCS: 36415; 80048; 84450; 84460; 84550; 85025; 85378; 85384; 85610; 85730

== ENCOUNTER → 2022-08-07 16:12 | Outpatient (CLI) | payer OTHER, SELFPAY ==
--- NOTE | 2022-08-07 16:15 | XR_ITS ---
PROCEDURE INFORMATION: Exam: XR Abdomen Exam date and time: 08/07/2022 4:33 PM Age: 32 years old Clinical indication: Abdominal pain; Localized; Left lower quadrant (llq); Additional info: Llq pain TECHNIQUE: Imaging protocol: Radiologic exam of the abdomen. Views: Frontal supine view of the abdomen. 1 View. COMPARISON: CR XR CHEST 2V 09/15/2020 1:07 PM FINDINGS: Gastrointestinal tract: Normal. No bowel dilation. Bones/joints: Unremarkable. IMPRESSION: No acute findings.
== END ==
PROVIDERS: PCP Internal Medicine Adolescent Medicine; Visit Provider Nurse Practitioner Family
DX: R10.32 Left lower quadrant pain (principal)
CPT/HCPCS: 74018

== ENCOUNTER → 2022-08-10 14:52 | Outpatient (CLI) | payer OTHER, SELFPAY ==
--- NOTE | 2022-08-10 14:55 | US_ITS ---
FINAL REPORT CLINICAL HISTORY: ABDOMINAL PAIN COMPARISON: None FINDINGS: Transvaginal sonographic images of the pelvis were obtained. The uterus measures 10.2 x 4.8 x 7.0 cm. The endometrium measures 14 mm, which is at the upper limits of normal. No uterine mass is identified. The right ovary measures 3.9 cm in length and left ovary measures 2.7 cm in length. Normal blood flow seen to the ovaries. Small follicles are present in bilateral ovaries. There is no evidence of free fluid. IMPRESSION: Upper limits of normal endometrium. Otherwise, no acute process. Reviewed, Interpreted and Dictated by Rangel Kramer III, MD Transcribed by Clarice Barajas Authenticated and [facility]
== END ==
PROVIDERS: PCP Internal Medicine Adolescent Medicine; Visit Provider Nurse Practitioner Family
DX: R10.11 Right upper quadrant pain (principal); R10.32 Left lower quadrant pain
CPT/HCPCS: 76830

== ENCOUNTER 2023-06-07 15:44 | Emergency (ER) | payer OTHER, SELFPAY ==
[2023-06-07 16:20] VITALS: BP 120/78; PULSE 91; RESP 20; TEMP 36.8; O2SAT 98; BMI 49.8
--- NOTE | 2023-06-07 16:37 | EXP.UTC ---
Discharge Plan Disposition Patient Disposition: Home, Self-Care Condition: Good Prescriptions Prescriptions: No Action nifedipine 30 mg tablet extended release 24hr 30 mg PO DAILY Qty: 30 2RF fluconazole [Diflucan] 150 mg tablet 150 mg PO Q3D Qty: 2 1RF Referrals Follow up/Referrals: Eliseo Galdamez MD [Primary Care Provider] - See instructions Activity Restrictions/Add. Instructions Additional Instructions/Restrictions: *Monitor Temp, Over the counter Motrin or Tylenol as directed/as needed Tylenol every 4 hours and Motrin every 6 hours (as long as your family doctor has told you that you can take it) for fever or pain. and straight to ER if unable to lower temp less than 101.0 after medication given *Warm salt water gargles may help to soothe the throat *Throat Lozenges? *Warm fluids like tea with honey may help to soothe the throat? *Sleep elevated *Humidifier/Vaporizer Follow up IMMEDIATELY for new or worsening symptoms or no Noticeable improvement over the next 48-72 hours. 911 for difficulty breathing or swallowing Clinical Impressions Clinical Impression: Viral syndrome Instructions Patient Instructions: DI for Viral Syndrome Discharge ED Provider: Deepika Perry [facility] General Stated complaint: charanjit, fever, [place] Mode of Arrival: Ambulatory Source of Information: Patient Limitations: No Limitations Time Seen by Provider: 06/07/23 16:37 Description of Symptoms (Recalled from Triage Doc. by RN): PATIENT C/O FEVER, BODY ACHES, CONGESTION AND DIARRHEA SINCE SUNDAY HEENT Symptoms (Recalled from RN notes): Yes Resp Symptoms (Recalled from RN notes): No Skin Symptoms (Recalled from RN notes): No MS Symptoms (Recalled from RN notes): No Functional Status (Recalled from RN notes): WNL History of Present Illness Provider Complaint: Patient states that she started feeling bad on Sunday and has had body aches, chills, fever and diarrhea all weekend States that it is a little better today but she wanted to get checked Related Data Previous Rx's Medication Instructions Recorded nifedipine 30 mg tablet,extended 30 mg PO DAILY #30 tabs 05/18/21 release 24 hr fluconazole 150 mg tablet 150 mg PO Q3D 2 doses #2 tabs 06/07/22 (Diflucan) Allergies Allergy/AdvReac Type Severity Reaction Status Date / Time No Known Allergies Allergy Verified 12/04/22 09:39 Worker's Comp Is this a Worker's Comp case?: No [facility] Disclaimer: The information contained in this section may have been updated after the patient was seen, as this information can be updated by other users. Social History Smoking Status: Former smoker tobacco type: cigarettes packs per day: 1 alcohol intake: never substance use type: denies use current occupational status: employed Travel in the last 8 weeks: None ROS Obtained: Yes All systems reviewed & no additional complaints except as documented and Yes Systems reviewed as appropriate & no additional complaints except as documented Constitutional Constitutional: Reports system reviewed and no additional complaints, except as documented, Reports as per HPI, Reports body ache, Reports chills, Reports fever(s) and Reports headache(s) ENT Ears, Nose, Mouth, and Throat: Reports system reviewed and no additional complaints, except as documented, Reports as per HPI, Reports headache(s) and Reports nasal congestion Cardiovascular Cardiovascular: Reports system reviewed and no additional complaints, except as documented and Reports as per HPI Respiratory Respiratory: Reports system reviewed and no additional complaints, except as documented and Reports as per HPI Gastrointestinal Gastrointestingal: Reports system reviewed and no additional complaints, except as documented, as per HPI and diarrhea Genitourinary Female Genitourinary: Reports system reviewed and no additional complaints, except as documented and Reports as per HPI Neurologic Neurologic: Reports headache(s) Physical Exam General General appearance: alert and in no apparent distress ENT ENT exam: Present mucous membranes moist Expanded ENT Exam Nose exam: Absent sinus tenderness Respiratory Respiratory exam: Present normal lung sounds bilaterally; Absent respiratory distress or wheezes Cardiovascular Cardiovascular exam: Present regular rate, normal rhythm and normal heart sounds Abdominal Exam Abdominal exam: Present soft and normal bowel sounds; Absent distention or tenderness Neurological Exam Neurological exam: Present alert, oriented X3 and normal gait Medical Decision Making Phil Inquiry Pt receiving controlled substance: No Phil was queried for this patient: No Vital Signs: 06/07/23 16:20 Temperature 98.2 F Temperature Source Oral Pulse Rate [Left Brachial] 91 H Respiratory Rate 20 Blood Pressure [Left Arm] 120/78 Blood Pressure Mean [Left Arm] 92 Blood Pressure Source [Left Arm] Automatic Cuff Blood Pressure Position [Left Arm] Sitting 02 Sat by Pulse Oximetry 98 Oxygen Delivery Method Room Air Lab Data Lab results reviewed: Yes I reviewed the patient's lab results.
[2023-06-07 17:04] VITALS: BP 120/78; PULSE 91; RESP 20; TEMP 36.8; O2SAT 98
[2023-06-07 17:10] LABS: UTC Influenza A Antigen Negative (Negative); UTC Influenza B Antigen Negative (Negative)
== END 2023-06-07 17:21 | disposition home or self-care (01) ==
PROVIDERS: Emergency Provider Nurse Practitioner; PCP Internal Medicine Adolescent Medicine
DX: U07.1 COVID-19 (principal); R19.7 Diarrhea, unspecified; R50.9 Fever, unspecified; R51.9 Headache, unspecified; R09.81 Nasal congestion; Z87.891 Personal history of nicotine dependence
CPT/HCPCS: 87635; 87804; 99203; 99212; G0463

== ENCOUNTER 2023-10-22 16:18 | Emergency (ER) | payer SELFPAY ==
[2023-10-22 16:20] VITALS: BP 153/98; PULSE 98; RESP 18; TEMP 36.8; O2SAT 98; BMI 48.0
--- NOTE | 2023-10-22 16:37 | PC.NURSE ---
DR BRUNO AT BEDSIDE
[2023-10-22 16:49] VITALS: PULSE 109; O2SAT 96
--- NOTE | 2023-10-22 16:51 | ED_ITS ---
<Statement entered by Jairo Dueñas MD - 10/22/23 18:55> I was consulted by the RON, and we discussed the complexity of the problems being addressed. I approved the treatment and management plan for this patient's care in the emergency department, thus performing a substantive portion of the medical decision making. Jairo Dueñas MD Discharge Plan Disposition Patient Disposition: Home, Self-Care Condition: Good Prescriptions Prescriptions: New doxycycline hyclate 100 mg capsule 100 mg PO BID 14 Days Qty: 28 0RF prednisone 50 mg tablet 50 mg PO DAILY 5 Days Qty: 5 0RF albuterol sulfate 90 mcg/actuation HFA aerosol inhaler 1 inh inhalation Q4H PRN (Reason: shortness of breath or wheezing) Qty: 6.7 0RF [id number] [Bromfed DM] 2-30-10 mg/5 mL syrup 5 ml PO Q4H PRN (Reason: cold symptoms) Qty: 118 0RF No Action nifedipine 30 mg tablet extended release 24hr 30 mg PO DAILY Qty: 30 2RF fluconazole [Diflucan] 150 mg tablet 150 mg PO Q3D Qty: 2 1RF Referrals Follow up/Referrals: Eliseo Galdamez MD [Primary Care Provider] - See instructions Activity Restrictions/Add. Instructions Additional Instructions/Restrictions: Follow-up with your PCP in 48 hours. Return to ER for any worsening signs or symptoms. Clinical Impressions Clinical Impression: Community acquired pneumonia Instructions Patient Instructions: Pneumonia-Adult Discharge ED Provider: Jairo Dueñas General Adult HPI <SONIYA Norton - Last Filed: 10/22/23 18:39> General Chief complaint: Upper Respiratory Infection Stated complaint: Fever,cough,chest congestion Time Seen by Provider: 10/22/23 16:33 Mode of Arrival: Ambulatory Limitations: No Limitations Description of Symptoms (Recalled from ER Triage Doc. by RN): PT REPORTS COUGH AND INTERMITTENT FEVER FOR ABOUT 1 WEEK History of Present Illness HPI narrative: Patient presents for evaluation of fever cough. Patient gives a 1 week history of URI symptoms that is progressed to a constant cough. Patient has associated subjective fevers and feels like she is wheezing although she does not have a known asthma history. She denies cardiac chest pain chills hemoptysis hematochezia melena hematemesis hematuria nausea vomiting diarrhea Related Data Previous Rx's Medication Instructions Recorded nifedipine 30 mg tablet,extended 30 mg PO DAILY #30 tabs 05/18/21 release 24 hr fluconazole 150 mg tablet 150 mg PO Q3D 2 doses #2 tabs 06/07/22 (Diflucan) albuterol sulfate 90 mcg/actuation 1 inh inhalation Q4H PRN shortness 10/22/23 aerosol inhaler of breath or wheezing #6.7 grams brsjpczywnvhdwl-nkedpihrqktoyjn-HE 5 ml PO Q4H PRN cold symptoms #118 10/22/23 2 mg-30 mg-10 mg/5 mL oral syrup mL (Bromfed DM) doxycycline hyclate 100 mg capsule 100 mg PO BID 14 days #28 caps 10/22/23 prednisone 50 mg tablet 50 mg PO DAILY 5 days #5 tabs 10/22/23 Allergies Allergy/AdvReac Type Severity Reaction Status Date / Time No Known Allergies Allergy Verified 12/04/22 09:39 PFS <SONIYA Norton - Last Filed: 10/22/23 18:39> [facility] Disclaimer: The information contained in this section may have been updated after the patient was seen, as this information can be updated by other users. Social History Smoking Status: Former smoker tobacco type: cigarettes packs per day: 1 alcohol intake: never substance use type: denies use current occupational status: employed Travel in the last 8 weeks: None <SONIYA Norton Last Filed: 10/22/23 18:39> ROS Obtained: Yes Systems reviewed as appropriate & no additional complaints except as documented Physical Exam <SONIYA Norton Last Filed: 10/22/23 18:39> General General appearance: alert and in no apparent distress Respiratory Respiratory exam: Present wheezes; Absent respiratory distress, stridor or accessory muscle use Cardiovascular Cardiovascular exam: Present normal rhythm, tachycardia, normal heart sounds, +S1 and +S2 Neurological Exam Neurological exam: Present alert and oriented X3 Medical Decision Making <SONIYA Norton Last Filed: 10/22/23 18:39> Medical Records Medical records reviewed: Yes I reviewed the patient's medical records. Vital Signs: 10/22/23 16:20 10/22/23 16:49 Temperature 98.3 F Temperature Source Oral Pulse Rate 109 H Pulse Rate [Radial] 98 H Respiratory Rate 18 Blood Pressure [Right Arm] 153/98 H Blood Pressure Mean [Right Arm] 116 Blood Pressure Source [Right Arm] Automatic Cuff Blood Pressure Position [Right Arm] Sitting 02 Sat by Pulse Oximetry 98 96 Oxygen Delivery Method Room Air Lab Data Lab results reviewed: Yes I reviewed the patient's lab results. Lab Results 10/22/23 16:58: VBG pH 7.35, VBG pCO2 41.3, VBG pO2 37.5, VBG HCO3 22.5 L, VBG Total CO2 23.8, VBG O2 Saturation 70.2 H, VBG Base Excess -3.1 L, VBG Lactic Acid 1.4 10/22/23 17:20: SARS-CoV-2 (PCR) Not detected, Influenza A Untype (PCR) Not detected, Influenza Type B (PCR) Not detected 10/22/23 17:30: WBC 9.4, RBC 4.98, Hgb 13.7, Hct 41.9, MCV 84.2, MCH 27.6, MCHC 32.7, RDW 15.1, Plt Count 219, MPV 8.5, Neut % (Auto) 73.5, Lymph % (Auto) 19.1, [place] % (Auto) 4.5, Eos % (Auto) 2.3, Baso % (Auto) 0.6, Neut # (Auto) 6.9, Lymph # (Auto) 1.8, [place] # (Auto) 0.4, Eos # (Auto) 0.2, Baso # (Auto) 0.1, Sodium 139, Potassium 3.8, Chloride 108 H, Carbon Dioxide 23, Anion Gap 11.8, BUN 13, Creatinine 1.00, Estimated Creat Clear 70, Estimated GFR 65, Est GFR ( Amer) 78, Glucose 95, Calcium 9.2, Magnesium 2.0, Total Bilirubin 0.4, AST 24, ALT 21, Alkaline Phosphatase 89, Troponin I < 0.01, Total Protein 7.7, Albumin 4.5, Globulin 3.2, Albumin/Globulin Ratio 1.4 10/22/23 17:30 10/22/23 17:30 Orders (Tests/Meds): ED MEDICATIONS Discontinued Medications Generic Name Dose Route Start Last Admin Trade Name Freq PRN Reason Stop Dose Admin Acetaminophen 1,000 mg 10/22/23 16:56 10/22/23 17:42 Acetaminophen 1,000mg/100ml Vial IV 10/22/23 16:57 1,000 mg ONCE ONE Administration Albuterol/Ipratropium 3 ml 10/22/23 16:56 10/22/23 18:11 Ipratropium/Albuterol 3 Ml Neb IH 10/22/23 16:57 3 ml ONCE ONE Administration Dexamethasone Sodium Phosphate 10 mg 10/22/23 16:56 10/22/23 17:43 Dexamethasone 4mg/Ml 5ml Mdv IV 10/22/23 16:57 10 mg ONCE ONE Administration Hydroxyzine Pamoate 50 mg 10/22/23 16:56 10/22/23 17:43 Hydroxyzine Pamoate 25mg Capsule PO 10/22/23 16:57 50 mg ONCE ONE Administration Lactated Ringer's 1,000 mls @ 999 mls/hr 10/22/23 16:56 10/22/23 17:42 Lactated Ringer's 1000 Ml Bag IV 10/22/23 17:56 999 mls/hr .Q1H1M ONE Administration Ketorolac Tromethamine 15 mg 10/22/23 16:56 10/22/23 17:43 Ketorolac 30mg/Ml Vial IV 10/22/23 16:57 15 mg ONCE ONE Administration ORDERS Category Date Time Status Chest XR -- portable [XR chest portable] Stat Exams 10/22/23 16:57 Completed CBC w/Auto Diff [Complete Blood Count Auto Diff] Stat Lab 10/22/23 17:30 Completed CMP [Comprehensive Metabolic Panel] Stat Lab 10/22/23 17:30 Completed Magnesium Stat Lab 10/22/23 17:30 Completed Rapid PCR Covid and Flu A/B Stat Lab 10/22/23 17:20 Completed Trop I [Troponin I] Stat Lab 10/22/23 17:30 Completed Troponin I Q3H Lab 10/22/23 20:00 Ordered Troponin I Q3H Lab 10/22/23 23:00 Ordered VBG [Venous Blood Gas] Stat RT 10/22/23 16:58 Completed Medical Decision Narrative: In summary patient is a 33-year-old female who presents to the emergency department for evaluation of cough shortness of breath. Patient is hemodynamically stable upon arrival, afebrile. Exam is remarkable for end expiratory wheezes in all 4 seo but breath sounds heard to bases. There is no increased work of breathing. Patient's oxygen saturation is 100% at the time my exam on room air. Differential diagnosis includes commune acquired pneumonia versus asthma/COPD undiagnosed, viral respiratory tract infection etc. Initial workup will be conducted with hematologic labs respiratory panel plain film chest x-ray. Initial interventions include Toradol Decadron Tylenol DuoNeb continuous cardiac monitoring and pulse oximetry. Initial workup reviewed by me shows that her hematologic labs are nonactionable however my informal interpretation of her plain film chest x-ray does not show any acute processes per radiology reports there is suggestion of an opacity in the lingula of the left lobe.. Upon repeat evaluation and improvement in her cough and her breath sounds are now clear.. Given this patient is appropriate for discharge with prescription for doxycycline first dose given here, prescription for short course of steroids, prescription for metered-dose inhaler and finally a prescription for Bromfed. <Jairo Dueñas MD - Last Filed: 10/22/23 17:48> Phil Inquiry Pt receiving controlled substance: No Vital Signs: 10/22/23 16:20 10/22/23 16:49 Temperature 98.3 F Temperature Source Oral Pulse Rate 109 H Pulse Rate [Radial] 98 H Respiratory Rate 18 Blood Pressure [Right Arm] 153/98 H Blood Pressure Mean [Right Arm] 116 Blood Pressure Source [Right Arm] Automatic Cuff Blood Pressure Position [Right Arm] Sitting 02 Sat by Pulse Oximetry 98 96 Oxygen Delivery Method Room Air Lab Data Lab Results 10/22/23 16:58: VBG pH 7.35, VBG pCO2 41.3, VBG pO2 37.5, VBG HCO3 22.5 L, VBG Total CO2 23.8, VBG O2 Saturation 70.2 H, VBG Base Excess -3.1 L, VBG Lactic Acid 1.4 10/22/23 17:20: SARS-CoV-2 (PCR) Not detected, Influenza A Untype (PCR) Not detected, Influenza Type B (PCR) Not detected 10/22/23 17:30: WBC 9.4, RBC 4.98, Hgb 13.7, Hct 41.9, MCV 84.2, MCH 27.6, MCHC 32.7, RDW 15.1, Plt Count 219, MPV 8.5, Neut % (Auto) 73.5, Lymph % (Auto) 19.1, [place] % (Auto) 4.5, Eos % (Auto) 2.3, Baso % (Auto) 0.6, Neut # (Auto) 6.9, Lymph # (Auto) 1.8, [place] # (Auto) 0.4, Eos # (Auto) 0.2, Baso # (Auto) 0.1, Sodium 139, Potassium 3.8, Chloride 108 H, Carbon Dioxide 23, Anion Gap 11.8, BUN 13, Creatinine 1.00, Estimated Creat Clear 70, Estimated GFR 65, Est GFR ( Amer) 78, Glucose 95, Calcium 9.2, Magnesium 2.0, Total Bilirubin 0.4, AST 24, ALT 21, Alkaline Phosphatase 89, Troponin I < 0.01, Total Protein 7.7, Albumin 4.5, Globulin 3.2, Albumin/Globulin Ratio 1.4 Orders (Tests/Meds): ED MEDICATIONS Discontinued Medications Generic Name Dose Route Start Last Admin Trade Name Cecily PRN Reason Stop Dose Admin Acetaminophen 1,000 mg 10/22/23 16:56 10/22/23 17:42 Acetaminophen 1,000mg/100ml Vial IV 10/22/23 16:57 1,000 mg ONCE ONE Administration Albuterol/Ipratropium 3 ml 10/22/23 16:56 10/22/23 18:11 Ipratropium/Albuterol 3 Ml Neb IH 10/22/23 16:57 3 ml ONCE ONE Administration Dexamethasone Sodium Phosphate 10 mg 10/22/23 16:56 10/22/23 17:43 Dexamethasone 4mg/Ml 5ml Mdv IV 10/22/23 16:57 10 mg ONCE ONE Administration Hydroxyzine Pamoate 50 mg 10/22/23 16:56 10/22/23 17:43 Hydroxyzine Pamoate 25mg Capsule PO 10/22/23 16:57 50 mg ONCE ONE Administration Lactated Ringer's 1,000 mls @ 999 mls/hr 10/22/23 16:56 10/22/23 17:42 Lactated Ringer's 1000 Ml Bag IV 10/22/23 17:56 999 mls/hr .Q1H1M ONE Administration Ketorolac Tromethamine 15 mg 10/22/23 16:56 10/22/23 17:43 Ketorolac 30mg/Ml Vial IV 10/22/23 16:57 15 mg ONCE ONE Administration ORDERS Category Date Time Status Chest XR -- portable [XR chest portable] Stat Exams 10/22/23 16:57 Completed CBC w/Auto Diff [Complete Blood Count Auto Diff] Stat Lab 10/22/23 17:30 Completed CMP [Comprehensive Metabolic Panel] Stat Lab 10/22/23 17:30 Completed Magnesium Stat Lab 10/22/23 17:30 Completed Rapid PCR Covid and Flu A/B Stat Lab 10/22/23 17:20 Completed Trop I [Troponin I] Stat Lab 10/22/23 17:30 Completed Troponin I Q3H Lab 10/22/23 20:00 Ordered Troponin I Q3H Lab 10/22/23 23:00 Ordered VBG [Venous Blood Gas] Stat RT 10/22/23 16:58 Completed ECG Data Tracing #1: Independently interpreted by me rate is 106, rhythm is regular, axis is normal, no ST elevation in anatomical contiguous leads. QTc 395. Critical Care <SONIYA Norton - Last Filed: 10/22/23 18:39> Critical Care Time Critical Care Time: No
--- NOTE | 2023-10-22 16:57 | XR_ITS ---
PROCEDURE INFORMATION: Exam: XR Chest Exam date and time: 10/22/2023 5:06 PM Age: 33 years old Clinical indication: Cough and shortness of breath and wheezing; Additional info: Cough, tachycardia TECHNIQUE: Imaging protocol: Radiologic exam of the chest. Views: 1 view. COMPARISON: CR XR CHEST 2V 09/15/2020 1:07 PM FINDINGS: Lungs: There is an opacity in the left lower lung/lingula which may reflect infiltrate. Pleural spaces: No large effusion or pneumothorax. Heart/Mediastinum: Stable cardiac and mediastinal contours. Bones/joints: No evidence of acute osseous abnormalities within the visualized portions of the thoracic spine and ribs. Osseous structures appear appropriate for patient age. IMPRESSION: There is an opacity in the left lower lung/lingula which may reflect infiltrate.
--- NOTE | 2023-10-22 17:16 | PC.NURSE ---
XR AT BEDSIDE
--- NOTE | 2023-10-22 17:24 | ECG_ITS ---
APPROVED REPORT Exam: Resting ECG HR:106 bpm ECG Measurements Heart Rate 106 AXES NJ 139 P 47 QRSd 96 QRS 75 QT 333 T 56 QTc 395 Conclusion SINUS TACHYCARDIA ABNORMAL RHYTHM ECG Electronically signed by : SUBHASH BRUNO, 10/24/2023 10:15:24
[2023-10-22 17:25] LABS: Coronavirus 19, PCR Not Detected (NotDetected); Influenza A, PCR Not Detected (NotDetected); Influenza B, PCR Not Detected (NotDetected)
[2023-10-22 17:40] LABS: Lactate Venous 1.4 mmol/L (0.4-2.0); VBG Base Excess -3.1 mmol/L (-2.4-2.3); VBG HCO3 22.5 mmol/L (23-30); VBG Oxygen Saturation 70.2 % (50-70); VBG PCO2 41.3 mmol/L (35-51); VBG PH 7.35 mmol/L (7.31-7.41); VBG PO2 37.5 mmol/L (28-40); VBG Total CO2 23.8 mmol/L (23-27)
[2023-10-22 17:42] LABS: Basophils # 0.1 K/mm3 (0-0.2); Basophils % 0.6 % (0.1-2.0); Eosinophils # 0.2 K/mm3 (0.0-0.4); Eosinophils % 2.3 % (0.1-12.0); Hematocrit 41.9 % (37.0-47.0); Hemoglobin 13.7 g/dL (12.2-16.2); Lymphocytes # 1.8 K/mm3 (0.7-4.5); Lymphocytes % 19.1 % (10-50); Mean Corpuscular HGB Conc 32.7 g/dL (31.8-35.4); Mean Corpuscular Hemoglobin 27.6 pg (27.0-31.2); Mean Corpuscular Volume 84.2 fl (81-99); Mean Platelet Volume 8.5 fl (7.4-10.4); Monocytes # 0.4 K/mm3 (0.1-1.0); Monocytes % 4.5 % (1.7-9.3); Neutrophils # 6.9 K/mm3 (1.8-7.8); Neutrophils % 73.5 % (37.0-80.0); Platelet Count 219 K/mm3 (142-424); Red Blood Count 4.98 M/mm3 (4.20-5.40); Red Cell Distribution Width 15.1 % (11.5-17.5); White Blood Count 9.4 K/mm3 (4.8-10.8)
[2023-10-22] MEDS: ACETAMINOPHEN 1,000MG/100ML VIAL 1000 MG IV (17:42)
[2023-10-22] MEDS: LACTATED RINGERS 1000ML 1,000 ML 999 ML IV (17:42)
[2023-10-22] MEDS: hydrOXYzine pamoate 25MG CAPSULE 50 MG PO (17:43)
[2023-10-22] MEDS: DEXAMETHASONE 4MG/ML 5ML MDV 10 MG IV (17:43)
[2023-10-22] MEDS: KETOROLAC 30MG/ML VIAL 15 MG IV (17:43)
[2023-10-22 17:54] LABS: Chloride 108 mmol/L (98-107); Sodium 139 mmol/L (136-145)
[2023-10-22 17:55] LABS: Potassium 3.8 mmoL/L (3.5-5.1)
[2023-10-22 17:57] LABS: Alanine Aminotransferase 21 U/L (12-78); Albumin Level 4.5 g/dl (3.5-5.0); Albumin/Globulin Ratio 1.4 (1.1-1.8); Alkaline Phosphatase 89 U/L (38-126); Anion Gap 11.8 mEq/L (5-15); Aspartate Amino Transferase 24 U/L (14-36); Bilirubin,Total 0.4 mg/dl (0.2-1.3); Blood Urea Nitrogen 13 mg/dl (7-17); Calcium 9.2 mg/dl (8.4-10.2); Carbon Dioxide 23 mmol/L (22.0-30.0); Creatinine Clearance Estimated 70 mL/min (50-200); Estimated Glomerular Filt Rate 65 ml/min (>60); GFR (African American) 78 ML/MIN (>60); Globulin 3.2 g/dL (1.3-3.2); Glucose 95 mg/dl (74-100); Total Protein,Serum 7.7 g/dl (6.3-8.2)
[2023-10-22] MEDS: IPRATROPIUM/ALBUTEROL 3 ML NEB IH (18:11)
[2023-10-22 18:13] LABS: Troponin I < 0.01 ng/ml (0.00-0.034)
[2023-10-22 18:49] VITALS: BP 142/81; PULSE 98; O2SAT 94
[2023-10-22 18:55] VITALS: BP 142/81; PULSE 97; RESP 16; TEMP 36.8; O2SAT 95
== END 2023-10-22 18:57 | disposition home or self-care (01) ==
PROVIDERS: Physician Assistant; Emergency Provider Emergency Medicine; PCP Internal Medicine Adolescent Medicine
DX: J18.9 Pneumonia, unspecified organism (principal); R06.2 Wheezing; R00.0 Tachycardia, unspecified; R50.9 Fever, unspecified; R05.1 Acute cough
CPT/HCPCS: 71045; 80053; 82803; 83735; 84484; 85025; 87636; 93005; 96361; 96374; 96375; 99284; J0131; J1885; J7120; J7620